=== PATIENT | female | born 1970 | race Caucasian/White ===

== ENCOUNTER 2017-12-24 11:25 | Observation (INO) | payer OTHER ==
[~2017-12-24] VITALS: Ht 170.2 cm; Wt 56.0 kg
[2017-12-24 11:29] VITALS: BP 124/76; PULSE 87; RESP 18; TEMP 98.4; O2SAT 96
[2017-12-24 11:41] VITALS: BP 124/76; PULSE 82; RESP 18; TEMP 98.4; O2SAT 96
[2017-12-24] MEDS ORDERED: SODIUM CHLORIDE 0.9% FLUSH 10 ML FLUSH IVF PRN (12:15)
[2017-12-24] MEDS ORDERED: SODIUM CHLOR 0.9% 250 ML INJ 250 ML IV ONE (12:15)
--- NOTE | 2017-12-24 12:18 | PD ---
HPI Chief Complaint: Neuro Symptoms/ Deficits Time Seen by Provider: 11:53 Travel History International Travel<30 days: No Contact w/Intl Traveler<30days: No Traveled to known affect area: No History of Present Illness HPI Patient states a couple of years ago she would have intermittent episodes of dizziness, nystagmus, unable to find words x 6 months. She was seen by Dr. Stuart, who "didn't find anything." States that the episodes recurred this afternoon in her doctor's office. She had dizziness, could not speak, will get up this morning with difficulty walking/felt like she was drunk, states that she is now getting back to normal. Duration of these episodes varies. She denies syncope, headache, vomiting, numbness, tingling, but reports slurred speech, vision, and nausea. She does have a history of migraines. Last menstrual period was 3 months ago. PFSH Past Medical History Arthritis: Yes Cerebrovascular Accident: Yes Headaches: Yes Migraines: Yes Tetanus Vaccination: Unknown Influenza Vaccination: Yes ?: Not LMP: 09/18/17 Menopausal: Yes Past Surgical History Other Surgery: Yes (SINUS SURGERY) Social History Alcohol Use: No Tobacco Use: Yes (1 PPD) Substance Use: No Allergies-Medications (Allergen,Severity, Reaction): Coded Allergies: morphine (Verified Allergy, Intermediate, Hives, 12/24/17) phenol (Verified Allergy, Intermediate, Swelling, 12/24/17) Reported Meds & Prescriptions Reported Meds & Active Scripts Active Reported Gabapentin 100 Mg Cap 100 Mg PO BID PRN Plaquenil (Hydroxychloroquine Sulfate) 200 Mg Tab 200 Mg PO BID Take with food Hydrocodone-Acetaminophen 10-325 mg Tab 1 Tab PO Q6H PRN Relpax (Eletriptan) 40 Mg Tab 40 Mg PO ONCE PRN Diclofenac Topical 1% Gel 1 Applic TOPICAL QID Tjyyivmdct-Zflgunr-Nfenitkp 50-325-40 Mg Cap 1 Cap PO Q4H PRN Do not exceed 6 capsules/day. Vuyyuiheam-Lenwdapualnjx-Grixpfxs 50-325-40 Mg Tab 1 Tab PO Q6HR PRN Do not exceed 6 tablets/day. Topiramate 50 Mg Tab 50 Mg PO BID Review of Systems Except as stated in HPI: all other systems reviewed are Neg Physical Exam Narrative GENERAL: No acute distress. SKIN: Focused skin assessment warm/dry. HEAD: Atraumatic. Normocephalic. EYES: Pupils equal and round. Extraocular muscles intact bilaterally. No scleral icterus. No injection or drainage. ENT: No nasal bleeding or discharge. Mucous membranes pink and moist. NECK: Trachea midline. No JVD. CARDIOVASCULAR: Regular rate and rhythm. No murmur appreciated. RESPIRATORY: No accessory muscle use. Clear to auscultation. Breath sounds equal bilaterally. GASTROINTESTINAL: Abdomen soft, non-tender, nondistended. Hepatic and splenic margins not palpable. MUSCULOSKELETAL: No obvious deformities. No clubbing. No cyanosis. No edema. NEUROLOGICAL: Awake and alert. No obvious cranial nerve deficits. Motor grossly within normal limits. Normal speech. 5/5 strength bilateral upper and lower extremity bilaterally. PSYCHIATRIC: Appropriate mood and affect; insight and judgment normal. Data Data Last Documented VS Vital Signs Date Time Temp Pulse Resp B/P (MAP) Pulse Ox O2 Delivery O2 Flow Rate FiO2 12/24/17 13:00 107/55 (72) 120/65 (83) 121/69 (86) 12/24/17 13:00 99 Room Air 12/24/17 11:41 98.4 82 18 Orders Orders Electrocardiogram (12/24/17 12:08) Prothrombin Time / Inr (Pt) (12/24/17 12:08) Act Partial Throm Time (Ptt) (12/24/17 12:08) Complete Blood Count With Diff (12/24/17 12:08) Comprehensive Metabolic Panel (12/24/17 12:08) Creatine Kinase (Cpk) (12/24/17 12:08) Troponin I (12/24/17 12:08) Urinalysis - C+S If Indicated (12/24/17 12:08) Ct Brain W/O Iv Contrast(Rout) (12/24/17 12:08) Chest, Single Ap (12/24/17 12:08) Ecg Monitoring (12/24/17 12:08) Iv Access Insert/Monitor (12/24/17 12:08) Oximetry (12/24/17 12:08) Sodium Chloride 0.9% Flush (Ns Flush) (12/24/17 12:15) Ed Urine Pregnancytest Poc (12/24/17 12:08) Orthostatic Vital Signs (12/24/17 12:08) Sodium Chlor 0.9% 250 Ml Inj (Ns 250 Ml (12/24/17 12:15) Urine Culture (12/24/17 12:40) Acetamin-Hydrocod 325-10 Mg ([place] 10-32 (12/24/17 15:00) Acetamin-Hydrocod 325-7.5 Mg ([place] 7.5 (12/24/17 15:15) Labs Laboratory Tests Test 12/24/17 12:40 12/24/17 14:05 White Blood Count 8.0 TH/MM3 Red Blood Count 5.12 MIL/MM3 Hemoglobin 17.0 GM/DL Hematocrit 49.6 % Mean Corpuscular Volume 96.8 FL Mean Corpuscular Hemoglobin 33.1 PG Mean Corpuscular Hemoglobin Concent 34.2 % Red Cell Distribution Width 12.1 % Platelet Count 260 TH/MM3 Mean Platelet Volume 9.4 FL Neutrophils (%) (Auto) 56.2 % Lymphocytes (%) (Auto) 33.5 % Monocytes (%) (Auto) 5.4 % Eosinophils (%) (Auto) 4.1 % Basophils (%) (Auto) 0.8 % Neutrophils # (Auto) 4.5 TH/MM3 Lymphocytes # (Auto) 2.7 TH/MM3 Monocytes # (Auto) 0.4 TH/MM3 Eosinophils # (Auto) 0.3 TH/MM3 Basophils # (Auto) 0.1 TH/MM3 CBC Comment DIFF FINAL Differential Comment Urine Color YELLOW Urine Turbidity CLEAR Urine pH 6.0 Urine Specific [place] 1.009 Urine Protein NEG mg/dL Urine Glucose (UA) NEG mg/dL Urine Ketones NEG mg/dL Urine Occult Blood NEG Urine Nitrite NEG Urine Bilirubin NEG Urine Urobilinogen LESS THAN 2 mg/dL Urine Leukocyte Esterase NEG Urine RBC LESS THAN 1 /hpf Urine WBC 1 /hpf Urine Bacteria OCC /hpf Microscopic Urinalysis Comment CATH-CULTURE IND Blood Urea Nitrogen 10 MG/DL Creatinine 0.48 MG/DL Random Glucose 69 MG/DL Total Protein 6.3 GM/DL Albumin 3.5 GM/DL Calcium Level 7.7 MG/DL Alkaline Phosphatase 50 U/L Aspartate Amino Transf (AST/SGOT) 21 U/L Alanine Aminotransferase (ALT/SGPT) 25 U/L Total Bilirubin 0.3 MG/DL Sodium Level 144 MEQ/L Potassium Level 3.7 MEQ/L Chloride Level 115 MEQ/L Carbon Dioxide Level 21.2 MEQ/L Anion Gap 8 MEQ/L Estimat Glomerular Filtration Rate 139 ML/MIN Total Creatine Kinase 93 U/L Troponin I LESS THAN 0.02 NG/ML Prothrombin Time 11.3 SEC Prothromb Time International Ratio 1.1 RATIO Activated Partial Thromboplast Time 26.8 SEC MDM Medical Decision Making Medical Screen Exam Complete: Yes Emergency Medical Condition: Yes Interpretation(s) ECG: Sinus rhythm, rate 70, normal axis normal intervals, QTC 418 T-wave inversion in V1 and V2, incomplete right bundle branch block Labs: Increased hemoglobin and hematocrit, decreased glucose, ua-occasional bacteria Last Impressions Head CT 12/24/17 1208 Impressions: CONCLUSION: 1. Negative CT Head non contrast. Chest X-Ray 12/24/17 1208 Signed Impressions: CONCLUSION: No acute cardiopulmonary process. Differential Diagnosis Migraine, seizure, TIA, CVA, intracranial mass, ICH Narrative Course Patient presents to the emergency department with an episode of dizziness, inability to speak. She is placed on school lunch monitor, IV access obtained, and EKG/chest x-ray/head CT/labs ordered. 1457: Patient c/o neck pain, has chronic neck pain, takes hydrocodone/acet 10/ 325mg but she didn't take it today. We will give her a dose (7.5/325mg as she states she only takes 3/4 of the pill usually). Diagnosis Primary Impression: TIA (transient ischemic attack) Qualified Codes: G45.9 - Transient cerebral ischemic attack, unspecified Admitting Information Admitting Physician Requests: Observation Condition: Stable Ying Oreilly MD Dec 24, 2017 12:18
[2017-12-24 13:00] VITALS: BP_SYST 107; BP_SYST 120; BP_SYST 121; BP_DIAS 55; BP_DIAS 65; BP_DIAS 69; O2SAT 99
[2017-12-24 13:06] LABS: AUTOMATED NEUTROPHIL # 4.5 TH/MM3 (1.8-7.7); BASOPHIL # 0.1 TH/MM3 (0-0.2); BASOPHIL % 0.8 % (0.0-2.0); EOSINOPHIL # 0.3 TH/MM3 (0-0.4); EOSINOPHIL % 4.1 % (0.0-4.0); HEMATOCRIT 49.6 % (35.0-46.0); LYMPH % 33.5 % (9.0-44.0); LYMPHOCYTE # 2.7 TH/MM3 (1.0-4.8); MEAN CELL VOLUME 96.8 FL (80.0-100.0); MEAN CORPUSCULAR HEMOGLOBIN 33.1 PG (27.0-34.0); MEAN CORPUSCULAR HGB CONC 34.2 % (32.0-36.0); MEAN PLATELET VOLUME 9.4 FL (7.0-11.0); MONO % 5.4 % (0.0-8.0); MONOCYTE # 0.4 TH/MM3 (0-0.9); NEUT % 56.2 % (16.0-70.0); PLATELET COUNT 260 TH/MM3 (150-450); RED BLOOD COUNT 5.12 MIL/MM3 (4.00-5.30); RED CELL DISTRIBUTION WIDTH 12.1 % (11.6-17.2)
[2017-12-24 13:17] LABS: BACTERIA, URINE OCC /hpf; BILIRUBIN, URINE NEG (NEG); BLOOD, URINE NEG (NEG); GLUCOSE,URINE NEG (NEG); KETONE, URINE NEG (NEG); NITRITE,URINE NEG (NEG); URINE COLOR YELLOW (YELLW/STRAW); URINE LEUKOCYTE ESTERASE NEG (NEG)
[2017-12-24 13:23] LABS: ALT (GPT) 25 U/L (10-53)
--- NOTE | 2017-12-24 13:26 | RADRPT ---
EXAM DATE: 12/24/2017 1:14 PM EDT AGE/SEX: 47 years / Female INDICATIONS: Altered mental status. CLINICAL DATA: This is the patient's initial encounter. Patient reports that signs and symptoms have been present for 1 day and indicates a pain score of 0/10. MEDICAL/SURGICAL HISTORY: . episodes of confusion and unable to speak 2 1/2 years ago. Smokes None. COMPARISON: No prior exams available for comparison. FINDINGS: A single AP view of the chest demonstrates the lungs to be symmetrically aerated without evidence of mass, infiltrate or effusion. The cardiomediastinal contours are unremarkable. Osseous structures a re intact. CONCLUSION: No acute cardiopulmonary process. Electronically signed by: Dany Mcduffie MD 12/24/2017 1:25 PM EDT
[2017-12-24 13:37] LABS: ALBUMIN 3.5 GM/DL (3.4-5.0); ALKALINE PHOSPHATASE 50 U/L (45-117); AST (GOT) 21 U/L (15-37); BICARBONATE 21.2 MEQ/L (21.0-32.0); BLOOD UREA NITROGEN 10 MG/DL (7-18); CALCIUM 7.7 MG/DL (8.5-10.1); CHLORIDE 115 MEQ/L (98-107); CREATININE 0.48 MG/DL (0.50-1.00); GLOMERULAR FILTRATION RATE 139 ML/MIN (>89); GLUCOSE,RANDOM 69 MG/DL (74-106); SODIUM (NA) 144 MEQ/L (136-145); TOTAL BILIRUBIN ADULT 0.3 MG/DL (0.2-1.0); TOTAL PROTEIN 6.3 GM/DL (6.4-8.2); TROPONIN I LESS THAN 0.02 NG/ML (0.02-0.05)
[2017-12-24 14:00] VITALS: BP 121/69; PULSE 76; RESP 18; O2SAT 99
[2017-12-24 14:27] LABS: INTERNATIONAL NORMALIZED RATIO 1.1 RATIO; PROTHROMBIN TIME - PATIENT 11.3 SEC (9.8-11.6)
--- NOTE | 2017-12-24 14:54 | RADRPT ---
EXAM DATE: 12/24/2017 1:53 PM EDT AGE/SEX: 47 years / Female INDICATIONS: Neuro symptoms. Slurred speech, Delayed verbal response, visual disturbances. CLINICAL DATA: This is the patient's initial encounter. Patient reports that signs and symptoms have been present for 1 day and indicates a pain score of 0/10. MEDICAL/SURGICAL HISTORY: Stroke. None. RADIATION DOSE: 56.35 CTDI (mGy) COMPARISON: No prior exams available for comparison. TECHNIQUE: CT of the head without contrast. Using automated exposure control and adjustment of the mA and/or kV according to patient size, radiation dose was kept as low as reasonably achievable to ob tain optimal diagnostic quality images. DICOM format image data is available electronically for revi ew and comparison. FINDINGS: Cerebrum: The ventricles are normal for age. No evidence of midline shift, mass lesion, hemorrhage or acute infarction. No extraaxial fluid collections are seen. Posterior Fossa: The cerebellum and brainstem are intact. The 4th ventricle is midline. The cerebe llopontine angle is unremarkable. Extracranial: The visualized portion of the orbits is intact. Skull: The calvaria is intact. No evidence of skull fracture. CONCLUSION: 1. Negative CT Head non contrast. Electronically signed by: Cody An MD 12/24/2017 2:53 PM EDT
[2017-12-24] MEDS ORDERED: ACETAMINOPHEN/HYDROcodone 325 MG/10 MG TAB PO ONE (15:00)
[2017-12-24] MEDS ORDERED: HYDR-3583 PO (15:09)
[2017-12-24] MEDS ORDERED: BUTACAP4 PO (15:09)
[2017-12-24] MEDS ORDERED: RELP40TA PO (15:09)
[2017-12-24] MEDS ORDERED: TOPI50TA7 PO (15:09)
[2017-12-24] MEDS ORDERED: GABA100C4 PO (15:09)
[2017-12-24] MEDS ORDERED: BUTATAB6 PO (15:09)
[2017-12-24] MEDS ORDERED: PLAQ200T PO (15:09)
[2017-12-24] MEDS ORDERED: DICL1GEL7 TOPICAL (15:09)
[2017-12-24] MEDS ORDERED: ACETAMINOPHEN/HYDROcodone 325 MG/7.5 MG TAB PO ONE (15:15)
[2017-12-24] MEDS ORDERED: GADODIAMIDE PF 287 MG/ML 5 ML VIAL (for RAD MRI) IVCONTRAST ONE (15:59)
[2017-12-24] MEDS ORDERED: ACETAMINOPHEN/HYDROcodone 325 MG/7.5 MG TAB PO PRN (16:15)
[2017-12-24] MEDS ORDERED: SODIUM CHLORIDE 0.9% FLUSH 10 ML FLUSH IV FLUSH PRN (16:15)
[2017-12-24] MEDS ORDERED: ACETAMINOPHEN 325 MG TAB PO PRN ×2 (16:15)
[2017-12-24] MEDS ORDERED: ACETAMINOPHEN/HYDROcodone 325 MG/5 MG TAB PO PRN (16:15)
[2017-12-24] MEDS ORDERED: NALOXONE HCL 0.4 MG/ML AMP IV PUSH PRN (16:15)
[2017-12-24] MEDS ORDERED: ENOXAPARIN SODIUM 30 MG/0.3 ML SYRINGE SQ SCH (17:00)
--- NOTE | 2017-12-24 17:04 | HHI.HP ---
[facility] Solo Almaguer MD Admission Diagnosis TIA Diagnoses: Chief Complaint: Dizziness, speech disturbance Travel History International Travel<30 Days: No Contact w/Intl Traveler <30 Da: No Traveled to Known Affected Are: No History of Present Illness The patient is a 47-year-old female with a past medical history of episodes of dizziness and speech difficulties who is presenting to the hospital following a similar episode of dizziness and speech difficulties. She says that about 2 years ago she had an 8 month stretch where she would develop symptoms of dizziness and have trouble with her speech. She also mentioned that her eyes would jump around erratically. She currently feels like her eyes are jumping around right now. She said that she normally feels like she is drunk when she gets these episodes. She followed up with neurology and had a workup and was not found to have any major reason for her symptoms. She has since had complete resolution of those symptoms but today at the [employer] office she developed a recurrence of the symptoms. She says he has an accompanying feeling of feeling hot. She also gets sick to the stomach with these episodes. She said she had signs earlier this week that she will be having this happen to her again. She said she has been having dizziness and balance problems this past week. She also said that she could not remember the address of her office. She says that she works 19 hours a day. She says she eats a lot to try to keep the weight on. She says that people in her family have difficulties sustaining weight. She endorses eating a lot of sugary foods. Review of Systems Except as stated in HPI: all other systems reviewed are Neg Past Family Social History Past Medical History Hypertension Cervical cancer Migraines Kidney stones Endometriosis UTI Granuloma annulare Past Surgical History LEEP Left hand surgery Sinus surgery Elbow surgery Allergies: Coded Allergies: morphine (Verified Allergy, Intermediate, Hives, 12/24/17) phenol (Verified Allergy, Intermediate, Swelling, 12/24/17) Family History Hypertension Osteoarthritis Migraines Social History The patient smokes 1 pack daily. She does not drink or use illicit substances. Physical Exam Vital Signs Vital Signs Date Time Temp Pulse Resp B/P (MAP) Pulse Ox O2 Delivery O2 Flow Rate FiO2 12/24/17 13:00 107/55 (72) 120/65 (83) 121/69 (86) 12/24/17 13:00 99 Room Air 12/24/17 11:41 98.4 82 18 124/76 (92) 96 Room Air 12/24/17 11:41 83 18 98 Room Air 12/24/17 11:29 98.4 87 18 124/76 (92) 96 Physical Exam GENERAL: No acute distress. SKIN: Focused skin assessment warm/dry. HEAD: Atraumatic. Normocephalic. EYES: Pupils equal and round. Extraocular muscles intact bilaterally. No scleral icterus. No injection or drainage. ENT: No nasal bleeding or discharge. Mucous membranes pink and moist. NECK: Trachea midline. No JVD. CARDIOVASCULAR: Regular rate and rhythm. No murmur appreciated. RESPIRATORY: No accessory muscle use. Clear to auscultation. Breath sounds equal bilaterally. GASTROINTESTINAL: Abdomen soft, non-tender, nondistended. Hepatic and splenic margins not palpable. MUSCULOSKELETAL: No obvious deformities. No clubbing. No cyanosis. No edema. NEUROLOGICAL: Awake and alert. No obvious cranial nerve deficits. Motor grossly within normal limits. Normal speech. No nystagmus. 5/5 strength bilateral upper and lower extremity bilaterally. Laboratory Laboratory Tests Test 12/24/17 12:40 12/24/17 14:05 White Blood Count 8.0 Red Blood Count 5.12 Hemoglobin 17.0 Hematocrit 49.6 Mean Corpuscular Volume 96.8 Mean Corpuscular Hemoglobin 33.1 Mean Corpuscular Hemoglobin Concent 34.2 Red Cell Distribution Width 12.1 Platelet Count 260 Mean Platelet Volume 9.4 Neutrophils (%) (Auto) 56.2 Lymphocytes (%) (Auto) 33.5 Monocytes (%) (Auto) 5.4 Eosinophils (%) (Auto) 4.1 Basophils (%) (Auto) 0.8 Neutrophils # (Auto) 4.5 Lymphocytes # (Auto) 2.7 Monocytes # (Auto) 0.4 Eosinophils # (Auto) 0.3 Basophils # (Auto) 0.1 CBC Comment DIFF FINAL Differential Comment Urine Color YELLOW Urine Turbidity CLEAR Urine pH 6.0 Urine Specific [place] 1.009 Urine Protein NEG Urine Glucose (UA) NEG Urine Ketones NEG Urine Occult Blood NEG Urine Nitrite NEG Urine Bilirubin NEG Urine Urobilinogen LESS THAN 2 Urine Leukocyte Esterase NEG Urine RBC LESS THAN 1 Urine WBC 1 Urine Bacteria OCC Microscopic Urinalysis Comment CATH-CULTURE IND Blood Urea Nitrogen 10 Creatinine 0.48 Random Glucose 69 Total Protein 6.3 Albumin 3.5 Calcium Level 7.7 Alkaline Phosphatase 50 Aspartate Amino Transf (AST/SGOT) 21 Alanine Aminotransferase (ALT/SGPT) 25 Total Bilirubin 0.3 Sodium Level 144 Potassium Level 3.7 Chloride Level 115 Carbon Dioxide Level 21.2 Anion Gap 8 Estimat Glomerular Filtration Rate 139 Total Creatine Kinase 93 Troponin I LESS THAN 0.02 Prothrombin Time 11.3 Prothromb Time International Ratio 1.1 Activated Partial Thromboplast Time 26.8 Date/Time Source Procedure Growth Status 12/24/17 12:40 Urine Catheterized Urine Urine Culture Pending Received Result Diagram: 12/24/17 1240 12/24/17 1240 Imaging Last Impressions Head CT 12/24/17 1208 Signed Impressions: CONCLUSION: 1. Negative CT Head non contrast. Chest X-Ray 12/24/17 1208 Signed Impressions: CONCLUSION: No acute cardiopulmonary process. Caprini VTE Risk Assessment Caprini VTE Risk Assessment: Mod/High Risk (score >= 2) Caprini Risk Assessment Model Point Value = 1 Point Value = 2 Point Value = 3 Point Value = 5 Age 41-60 Minor surgery BMI > 25 kg/m2 Swollen legs Varicose veins or History of unexplained or recurrent spontaneous Oral contraceptives or hormone replacement Sepsis (< 1 month) Serious lung disease, including pneumonia (< 1 month) Abnormal pulmonary function Acute myocardial infarction Congestive heart failure (< 1 month) History of inflammatory bowel disease Medical patient at bed rest Age 61-74 Arthroscopic surgery Major open surgery (> 45 min) Laparoscopic surgery (> 45 min) Malignancy Confined to bed (> 72 hours) Immobilizing plaster cast Central venous access Age >= 75 History of VTE Family history of VTE Factor V Leiden Prothrombin [id number] Lupus anticoagulant Anticardiolipin antibodies Elevated serum homocysteine Heparin-induced thrombocytopenia Other congenital or acquired thrombophilia Stroke (< 1 month) Elective arthroplasty Hip, pelvis, or leg fracture Acute spinal cord injury (< 1 month) Prophylaxis Regimen Total Risk Factor Score Risk Level Prophylaxis Regimen 0-1 Low Early ambulation 2 Moderate Order ONE of the following: *Sequential Compression Device (SCD) *Heparin 5000 units SQ BID 3-4 Higher Order ONE of the following medications: *Heparin 5000 units SQ TID *Enoxaparin/Lovenox 40 mg SQ daily (WT < 150 kg, CrCl > 30 mL/min) *Enoxaparin/Lovenox 30 mg SQ daily (WT < 150 kg, CrCl > 10-29 mL/min) *Enoxaparin/Lovenox 30 mg SQ BID (WT < 150 kg, CrCl > 30 mL/min) AND/OR *Sequential Compression Device (SCD) 5 or more Highest Order ONE of the following medications: *Heparin 5000 units SQ TID (Preferred with Epidurals) *Enoxaparin/Lovenox 40 mg SQ daily (WT < 150 kg, CrCl > 30 mL/min) *Enoxaparin/Lovenox 30 mg SQ daily (WT < 150 kg, CrCl > 10-29 mL/min) *Enoxaparin/Lovenox 30 mg SQ BID (WT < 150 kg, CrCl > 30 mL/min) AND *Sequential Compression Device (SCD) Assessment and Plan Assessment and Plan Speech difficulties/ Dizziness/ Migraines/ Hypoglycemia The pt has had episodes similar to this years ago. She followed with Dr. Stuart. She endorses dizziness, ambulating problems and speech difficulties. Her blood sugar was in the 60s on admission, she says she has had low blood sugars before. She has migraines and symptoms are consistent with complicated migraines. Seizure will need to be ruled out. - follow blood sugar. - D5 1/2 NS. - migraine meds as needed. - EEG. - PT/ ST. - neurology consult requested. UTI UA mildly positive. - follow urine culture. Weight loss The patient says she chronically has difficulties with keeping weight on. - Check an A1c and TSH. - nutrition consult. Polycythemia Likely s/t dehydration. - IVFs. - follow CBC. PPx: Lovenox Discussed Condition With Pt, Bolivar Holliday DO Dec 24, 2017 17:04
[2017-12-24] MEDS: ACETAMIN 325 MG/BUTALBITAL 50 MG/CAFFEINE 40 MG TAB PO PRN (18:26)
[2017-12-24 19:26] VITALS: BP 110/62; PULSE 82; RESP 17; O2SAT 97
[2017-12-24] MEDS: DEXT 5%-NACL 0.45% 1000 ML INJ 1,000 ML IV SCH (19:31)
[2017-12-24] MEDS: DOCUSATE SODIUM 50 MG/SENNA 8.6 MG TAB PO SCH (20:36)
[2017-12-24] MEDS: SODIUM CHLORIDE 0.9% FLUSH 10 ML FLUSH IV FLUSH SCH (20:36)
[2017-12-24] MEDS: TOPIRAMATE 25 MG TAB PO SCH (20:36)
[2017-12-24] MEDS: HYDROXYCHLOROQUINE SULFATE 200 MG TAB PO SCH (20:36)
[2017-12-24 22:48] LABS: HEMOGLOBIN A1C 5.1 % (4.3-6.0)
[2017-12-24 23:30] VITALS: BP 100/56; PULSE 64; RESP 16; TEMP 98.7; O2SAT 97
[2017-12-24] MEDS ORDERED: MELATONIN 5 MG TAB PO ONE (23:45)
[2017-12-25 04:00] VITALS: BP 111/58; PULSE 75; RESP 16; TEMP 98.7; O2SAT 97
[2017-12-25 04:30] VITALS: PULSE 63
[2017-12-25] MEDS: DEXT 5%-NACL 0.45% 1000 ML INJ 1,000 ML IV SCH (05:49)
[2017-12-25] MEDS: SODIUM CHLORIDE 0.9% FLUSH 10 ML FLUSH IV FLUSH SCH (07:59)
[2017-12-25] MEDS: DOCUSATE SODIUM 50 MG/SENNA 8.6 MG TAB PO SCH (07:59)
[2017-12-25] MEDS: HYDROXYCHLOROQUINE SULFATE 200 MG TAB PO SCH (07:59)
[2017-12-25] MEDS: TOPIRAMATE 25 MG TAB PO SCH (07:59)
[2017-12-25 08:00] VITALS: PULSE 69
[2017-12-25] MEDS ORDERED: ASPIRIN EC 325 MG TABEC PO SCH (09:00)
--- NOTE | 2017-12-25 09:30 | MB ---
cc: Dontae Sharma MD DATE: 12/25/2017 HISTORY OF PRESENT ILLNESS: A 47-year-old woman with a history of hypertension, hypercholesterolemia, palpitations, thyroid nodule, some lymph nodes in her groin she tells me recently. About 3 years ago, she had 8 months of dizziness, lightheadedness. No true vertigo; however, 20 time she said she could not get her words out with those episodes. She has chronic daily headaches, migraines, bifrontal throbbing. No asymmetrical weakness or numbness. She has been on Topamax for the headache. She is not sure what dose. She takes it every night. She takes Fiorinal every day and also Neurontin. She was seeing Dr. Stuart, although has not seen her in while because she had not had any episodes of dizziness. Evidently had a workup as an outpatient for that. Then, about a week ago, she started to have a little bit of dizziness and then yesterday was at the doctor's office, felt somewhat dizzy, lightheaded, was lying back, sat up and then felt like she could not get her words out, some stuttering, she could just say, sorry, sorry. Similar to her prior episodes that she had 2-3 years ago. She had a mild headache at that time. PAST MEDICAL HISTORY: As above. Also, she may have rheumatoid arthritis, on the Plaquenil by rheumatology. She denies any lupus. REVIEW OF SYSTEMS: Denies any chest pain, diabetes, [place], stent, angioplasty, AFib, Coumadin, CABG, renal, hepatic, pulmonary disease, lupus, ulcer, known cancer, seizure or stroke, miscarriages or blood clots. She has never been able to have a baby. She questions whether she could have Amber-Danlos syndrome. SOCIAL HISTORY: Nonsmoker, nondrinker, lives by herself. FAMILY HISTORY: Negative for cancer, seizure. Positive stroke in a grandmother. Positive for migraines very strongly in the family. ALLERGIES: ALLERGIC TO MORPHINE AND PHENOL. MEDICATIONS: Gabapentin 100 b.i.d., Plaquenil 200 b.i.d., hydrocodone, Relpax p.r.n., Fiorinal, Topamax 50, evidently at night. She had some weight loss with that. PHYSICAL EXAMINATION: VITAL SIGNS: Afebrile, 75, 16, 111/58. NECK: There were no carotid bruits. HEART: Regular rate and rhythm. I do not detect a murmur. NEUROLOGIC: Pupils are equal. Visual ayala are full. Discs are sharp. Extraocular movements intact without nystagmus. Wantagh-Hallpike maneuver is negative bilaterally. Face is symmetric with normal sensation. Tongue was midline. No drift. Normal strength in upper and lower extremities bilaterally. Toes downgoing bilaterally. DTRs are 1+ and symmetric throughout. Pinprick is intact throughout. Not ataxic on [id number]. Speech is fluent. She is not aphasic. No speech problems at this time. LABORATORY DATA: CBC is normal. Urine drug screen positive for barbiturates only. UA is negative. Basic metabolic profile, LFTs, troponin, CPK, albumin normal. TSH less than 0.05. She has been in sinus rhythm here. IMPRESSION/PLAN: The neurological exam is normal. I suspect her lightheadedness may be due to some hypotension and will check some orthostatic blood pressures on her. She has had a weight loss and that could also be due to hyperthyroidism. We will check a hypercoagulable screen on her, MRI of the brain, MRA of the neck and [place]. It looks like she had extensive workup in the past, more than likely. We will start her on some Depakote, which may help with some weight gain and with her migraines. She can followup with Dr. Stuart. We will check a T4. If in fact she is hyperthyroid, that should be treated. Overall, she looks well neurologically at this time. Treat her with just a baby aspirin for now. I think a TIA is probably unlikely. If her echocardiogram is normal, if her thyroid is treated, if her MRI/MRAs are negative, she could be discharged on a baby aspirin to followup with Dr. Stuart, who could followup her hypercoagulable screen and any other blood work. Also, send her out on script of Depakote ER 250 at night. MD MENG Rebolledo/GILA , 08:49 AM , 09:29 AM
[2017-12-25] MEDS ORDERED: LORazepam 2 MG/ML VIAL IV PUSH ONE (10:30)
[2017-12-25 11:55] VITALS: BP_SYST 105; BP_SYST 108; BP_SYST 113; BP_DIAS 61; BP_DIAS 64; BP_DIAS 73; PULSE 74; RESP 16; TEMP 98.4; O2SAT 97
[2017-12-25 12:36] LABS: CHOLESTEROL 163 MG/DL (120-200)
[2017-12-25] MEDS ORDERED: DIVA250ER PO (12:39)
--- NOTE | 2017-12-25 12:40 | HHI.DCPOC ---
Discharge Care Plan Diagnosis: (1) Hyperthyroidism (2) TIA (transient ischemic attack) Goals to Promote Your Health * To prevent worsening of your condition and complications * To maintain your health at the optimal level Directions to Meet Your Goals Take your medications as prescribed Follow your dietary instruction Follow activity as directed Keep your appointments as scheduled Take your immunizations and boosters as scheduled If your symptoms worsen call your PCP, if no PCP go to Urgent Care Center or Emergency Room Smoking is Dangerous to Your Health. Avoid second hand smoke Call the 24-hour hour crisis hotline for domestic abuse at Murray Ceja MD Dec 25, 2017 12:40
--- NOTE | 2017-12-25 12:42 | HHI.PR ---
Subjective Remarks Nursing denies any deterioration since last night. Patient reports still having mild headache. But denies being aphasic this morning. Reports chronic history of palpitations and losing weight and having a thyroid nodule. Objective Vital Signs Date Time Temp Pulse Resp B/P (MAP) Pulse Ox O2 Delivery O2 Flow Rate FiO2 12/25/17 11:55 98.4 74 16 105/61 (76) 97 113/64 (80) 108/73 (85) 12/25/17 08:00 69 12/25/17 04:30 63 12/25/17 04:00 98.7 75 16 111/58 (75) 97 12/24/17 23:30 98.7 64 16 100/56 (71) 97 12/24/17 19:30 18 12/24/17 19:26 82 17 110/62 (78) 97 12/24/17 17:58 12/24/17 16:22 18 12/24/17 14:00 76 18 121/69 (86) 99 Room Air 12/24/17 13:00 107/55 (72) 120/65 (83) 121/69 (86) 12/24/17 13:00 99 Room Air Result Diagram: 12/24/17 1240 12/24/17 1240 Objective Remarks Heart sounds regular rhythm, no murmurs Lying back, awake and alert, no acute distress, no slurred speech, no facial droop A/P Assessment and Plan Speech difficulties/ Dizziness/ Migraines/ Hypoglycemia -Speech difficulties have resolved. Could have been a TIA. -Appreciate neurology recommendations, EEG results pending. MRI/MRA pending. Echocardiogram pending Migraines -Continue home Topamax and gabapentin, started on Depakote by neurology Suspected hyperthyroidism -Significantly low TSH, free T3 free T4 pending. Regardless of results, patient likely has hypothyroidism, see endocrinology outpatient. Weight loss The patient says she chronically has difficulties with keeping weight on. - A1c 5.1 - nutrition consult. UTI UA mildly positive. - follow urine culture. Polycythemia Likely s/t dehydration. - IVFs. - follow CBC. PPx: Lovenox Addendum: MRI/MRA neg. only echo pending. Pt has met maximal benefit from hospitalization and is clinically stable for discharge. Murray Ceja MD Dec 25, 2017 12:42
[2017-12-25 12:44] LABS: FREE T3 3.42 PG/ML (2.18-3.98); FREE T4 1.37 NG/DL (0.76-1.46)
[2017-12-25 12:47] LABS: RHEUMATOID FACTOR SCREEN NEGATIVE (NEGATIVE)
[2017-12-25 13:03] LABS: C-REACTIVE PROTEIN LESS THAN 0.29 MG/DL (0.00-0.30); CHOLESTEROL/ HDL RATIO 2.69 RATIO; FREE T4 1.39 NG/DL (0.76-1.46); HDL CHOLESTEROL 60.4 MG/DL (40.0-60.0); LDL CHOLESTEROL 85 MG/DL (0-99); TRIGLYCERIDES 87 MG/DL (42-150)
[2017-12-25 13:05] LABS: FOLATE GREATER THAN 20.0 NG/ML (3.1-17.5)
[2017-12-25] MEDS: ACETAMIN 325 MG/BUTALBITAL 50 MG/CAFFEINE 40 MG TAB PO PRN (13:10)
--- NOTE | 2017-12-25 13:23 | MG ---
cc: Pawan Tran MD, PhD TEST NUMBER: [id number] TECHNIQUE: A 17-channel EEG. DESCRIPTION: The background rhythm reveals symmetrical alpha rhythm, frequency 8-9 Hz. Amplitude is about 20 microvolts. There is some eye movement and muscle artifact. No lateralizing features identified. No epileptiform features are seen. Photic is normal. INTERPRETATION: Normal electroencephalogram. Pawan Tran MD, PhD JULY/SB , 01:01 PM , 01:22 PM
[2017-12-25 13:31] LABS: HEMATOCRIT 47.1 % (35.0-46.0); HEMOGLOBIN 16.1 GM/DL (11.6-15.3); MEAN CORPUSCULAR HEMOGLOBIN 33.1 PG (27.0-34.0); MEAN CORPUSCULAR HGB CONC 34.1 % (32.0-36.0); PLATELET COUNT 266 TH/MM3 (150-450); RED BLOOD COUNT 4.85 MIL/MM3 (4.00-5.30); RED CELL DISTRIBUTION WIDTH 11.7 % (11.6-17.2); WHITE BLOOD COUNT 7.7 TH/MM3 (4.0-11.0)
[2017-12-25 15:36] VITALS: BP 114/60; PULSE 75; RESP 16; TEMP 98.1; O2SAT 96
[2017-12-25] MEDS ORDERED: CEFU1TAB18 PO (15:50)
[2017-12-25] MEDS ORDERED: ASPI81TA23 PO (16:39)
--- NOTE | 2017-12-25 17:42 | RADRPT ---
EXAM DATE: 12/25/2017 5:18 PM EDT AGE/SEX: 47 years / Female INDICATIONS: . CVA. CLINICAL DATA: This is the patient's initial encounter. Patient reports that signs and symptoms have been present for 2 days and indicates a pain score of 1/10. MEDICAL/SURGICAL HISTORY: . Migraines. . Hand and elbow sx, sinus sx. COMPARISON: No prior exams available for comparison. TECHNIQUE: 20 ml Omniscan (gadodiamide) contrast infused MRA (single exam dose) of the extracranial circulation was performed using a neurovascular coil. Postprocessing was performed, including rotat ing sub-volume maximum intensity projections of each carotid artery, rotating full-volume maximum int ensity projections of both carotid arteries, sagittal and coronal sliding thin-slab reformations of e ach carotid artery, and left oblique sliding thin-slab reformation through the aortic arch to include the origin of the arch branch vessels. FINDINGS: Aortic Arch : Bovine type two-vessel arch anatomy. No evidence of ostial narrowing. Right Carotid : The common carotid artery is intact. The carotid bulb has a normal configuration wi thout ulceration or narrowing. The internal carotid artery lumen is smooth without stenosis. The ex ternal carotid artery is intact. Left Carotid : The common carotid artery is intact. The carotid bulb has a normal configuration wit hout ulceration or narrowing. The internal carotid artery lumen is smooth without stenosis. The ext ernal carotid artery is intact. Vertebrals : The vertebral arteries have are asymmetric with dominant left vertebral artery. No rei notic lesions are seen. CONCLUSION: 1. Unremarkable MRA examination of the carotid arteries. Percent stenosis is calculated using the diameter of the stenotic region over the diameter of the nor mal distal internal carotid artery Electronically signed by: Jake Johnson MD 12/25/2017 5:41 PM EDT
--- NOTE | 2017-12-25 17:47 | EKG ---
Date Performed: 12/24/2017 Time Performed: 13:36:46 PTAGE: 47 years EKG: Sinus rhythm INCOMPLETE RIGHT BUNDLE BRANCH BLOCK BORDERLINE ECG NO PREVIOUS TRACING DOCTOR: Jerrica Fang Interpretating Date/Time 12/25/2017 17:45:48
--- NOTE | 2017-12-25 17:49 | RADRPT ---
EXAM DATE: 12/25/2017 5:05 PM EDT AGE/SEX: 47 years / Female INDICATIONS: CVA. CLINICAL DATA: This is the patient's initial encounter. Patient reports that signs and symptoms have been present for 2 days and indicates a pain score of 1/10. MEDICAL/SURGICAL HISTORY: . Migraines. . Hand and elbow sx, sinus sx. COMPARISON: [facility] – [place], [place], CT BRAIN W/O CONTRAST, 12/24/2017. . TECHNIQUE: Multiplanar, multisequence examination of the brain was performed without and with 20 ml O mniscan (gadodiamide) contrast as a single exam dose. FINDINGS: Cerebrum: The ventricles are normal for age. No evidence of midline shift, mass lesion, hemorrhage or acute infarction. No extraaxial fluid collections are seen. The pituitary gland and suprasellar cistern are normal in configuration. White Matter: No significant signal abnormalities are seen in the white matter. Posterior Fossa: The cerebellum and brainstem are intact. The 4th ventricle is midline. The cerebel lopontine angle is unremarkable. The cerebellar tonsils are normal in position. Diffusion Imaging: No focal areas of restricted diffusion are seen. No evidence of acute infarction . Extracranial: The visualized portions of the orbits and paranasal sinuses are unremarkable. Post Contrast: No abnormal areas of parenchymal or dural enhancement. No evidence of blood-brain ba rrier breakdown. CONCLUSION: Negative brain MRI examination. Electronically signed by: Dany Mcduffie MD 12/25/2017 5:48 PM EDT
--- NOTE | 2017-12-25 17:51 | RADRPT ---
EXAM DATE: 12/25/2017 4:56 PM EDT AGE/SEX: 47 years / Female INDICATIONS: CVA. CLINICAL DATA: This is the patient's initial encounter. Patient reports that signs and symptoms have been present for 2 days and indicates a pain score of 1/10. MEDICAL/SURGICAL HISTORY: . Migraines. . Hand and elbow sx, sinus sx. COMPARISON: No prior exams available for comparison. TECHNIQUE: 3D [id number] MRA was performed. Source images, multiplanar STS MIP, and 3D volum e MIP reconstructions were reviewed. FINDINGS: There is excellent visualization of the major intracranial arteries out to the second-order branch ve ssels. There is no evidence for aneurysm, vessel truncation or stenosis, and no evidence for vascula r malformation. 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 The A2 segments fill via the le ft side through an anterior communicating artery. The right vertebral artery ends as the posterior in ferior cerebellar artery. The left vertebral artery continues as the basilar artery. The basilar breanna ry primarily ends in the left posterior cerebral artery. The right posterior cerebral artery arises f rom the right internal carotid artery. These are all normal variants. CONCLUSION: Negative MRA. Variant anatomy as described above. Electronically signed by: Dany Mcduffie MD 12/25/2017 5:50 PM EDT
--- NOTE | 2017-12-25 18:34 | ECHRPT ---
Indication: CVA/TIA CONCLUSIONS Normal left ventricular size. EF @ 55% Wall thickness is normal. The left ventricular systolic function is grossly normal on limited imaging. There is trace tricuspid valve regurgitation. The estimated pulmonary arterial pressure is 31.3 mmHg. BP: / HR: Rhythm: Sinus MEASUREMENTS (Male / Female) Normal Values Technical Quality:Fair 2D ECHO LV Diastolic Diameter PLAX 4.5 cm 4.2 - 5.9 / 3.9 - 5.3 cm LV Systolic Diameter PLAX 2.8 cm IVS Diastolic Thickness 0.9 cm 0.6 - 1.0 / 0.6 - 0.9 cm LVPW Diastolic Thickness 0.9 cm 0.6 - 1.0 / 0.6 - 0.9 cm LV Relative Wall Thickness 0.4 RV Internal Dim ED PLAX 2.7 cm LVOT Diameter 2.1 cm Aortic Root Diameter 2.9 cm LA Systolic Diameter LX 2.3 cm 3.0 - 4.0 / 2.7 - 3.8 cm M-MODE AV Cusp Separation MM 1.8 cm DOPPLER AV Peak Velocity 89.6 cm/s AV Peak Gradient 3.2 mmHg AV Mean Gradient 2.0 mmHg AV Velocity Time Integral 14.2 cm LVOT Peak Velocity 65.4 cm/s LVOT Peak Gradient 1.7 mmHg LVOT Velocity Time Integral 11.4 cm AV Area Cont Eq vti 2.8 cm AV Area Cont Eq pk 2.5 cm Mitral E Point Velocity 45.9 cm/s Mitral A Point Velocity 50.3 cm/s Mitral E to A Ratio 0.9 LV E' Lateral Velocity 16.1 cm/s Mitral E to LV E' Lateral Ratio 2.9 LV E' Septal Velocity 7.0 cm/s Mitral E to LV E' Septal Ratio 6.5 TR Peak Velocity 231.0 cm/s TR Peak Gradient 21.3 mmHg Right Atrial Pressure 10.0 mmHg Pulmonary Artery Systolic Pressu 31.3 mmHg Right Ventricular Systolic Press 31.3 mmHg FINDINGS LEFT VENTRICLE Normal left ventricular size. Wall thickness is normal. The left ventricular systolic function is grossly normal on limited imaging. RIGHT VENTRICLE Normal right ventricular size and systolic function. LEFT ATRIUM The left atrial size is normal. RIGHT ATRIUM The right atrial size is normal. ATRIAL SEPTUM No atrial level shunt is demonstrated by color flow Doppler interrogation. AORTA The aortic root and proximal ascending aorta are not well visualized. MITRAL VALVE Structurally normal mitral valve. No mitral valve stenosis or regurgitation. AORTIC VALVE Trileaflet aortic valve. No aortic valve stenosis or regurgitation. TRICUSPID VALVE There is trace tricuspid valve regurgitation. The estimated pulmonary arterial pressure is 31.3 mmHg. PULMONARY VALVE No pulmonary valve regurgitation or stenosis. VESSELS The inferior vena cava was not well visualized. PERICARDIUM No pericardial effusion. Kimani Barnhart MD, FACC, [facility] [place] (Electronically Signed) Final Date:25 December 2017 18:33
[2017-12-25] MEDS ORDERED: TOPIRAMATE 25 MG TAB PO SCH (21:00)
[2017-12-25] MEDS ORDERED: DIVALPROEX SODIUM E.R. 250 MG TAB PO SCH (21:00)
[2017-12-26 22:17] LABS: ALB/GLOB RATIO (SPE) 2.33 (1.39-2.23)
[2017-12-27 03:49] LABS: ANTI-THROMBIN III ACT 118 (80-120)
[2017-12-27 07:52] LABS: DRVVT 1:1 MIX ND (CORRECTED); DRVVT CONFIRM ND (NEGATIVE); HEXAGONAL PHASE CONFIRM ND (NEGATIVE)
[2017-12-27 23:18] LABS: METHYLMALONIC ACID 0.11 nmol/mL (<=0.40)
[2017-12-27 23:51] LABS: FACTOR VIII(8) ACTIVITY 92 (50-180)
[2017-12-29 14:34] LABS: CARDIOLIPIN IGG AB <9.4 GPL; CARDIOLIPIN IGM AB <9.4 MPL
[2017-12-30 17:50] LABS: PROTEIN C ACTIVITY 94 % (70 - 150); PROTEIN S ACTIVITY 86 % (50 - 160)
== END 2017-12-25 18:00 | disposition home or self-care (01) ==
LOC: NEPE 11:25 → NEDA 15:58 → UNDODISOB 16:07 → NEPGCP 18:00
PROVIDERS: ADMIT Hospitalist; ATTEND Hospitalist
DX: G43.109 Migraine with aura, not intractable, without status migrainosus (principal); G45.9 Transient cerebral ischemic attack, unspecified; E16.2 Hypoglycemia, unspecified; E86.0 Dehydration; N39.0 Urinary tract infection, site not specified; D75.1 Secondary polycythemia; I10 Essential (primary) hypertension; E05.90 Thyrotoxicosis, unspecified without thyrotoxic crisis or storm; E04.1 Nontoxic single thyroid nodule; E78.00 Pure hypercholesterolemia, unspecified; I45.10 Unspecified right bundle-branch block; F17.200 Nicotine dependence, unspecified, uncomplicated; Z85.41 Personal history of malignant neoplasm of cervix uteri
CPT/HCPCS: 70450; 70544; 70548; 70553; 71045; 80053; 80061; 80307; 81001; 81240; 81241; 81291; 82550; 82607; 82746; 82948; 83036; 83921; 84146; 84165; 84425; 84439; 84443; 84481; 84484; 84702; 84703; 85025; 85027; 85240; 85300; 85303; 85306; 85610; 85613; 85652; 85730; 86038; 86140; 86147; 86430; 86592; 87077; 87086; 87186; 92522; 93005; 93306; 95819; 96361; 96372; 96374; 97162; 99285; A9579; G0378; G8987; G8988; G8999; G9158; G9186; J1650; J2060; J7050